=== PATIENT | female | born 2000 | race Caucasian/White ===

== ENCOUNTER 2021-01-16 07:30 | Outpatient (RCR) | payer OTHER, MEDICAID, SELFPAY | END 2021-04-14 23:59 | disposition home or self-care (01) | LOC: ANHLAB 07:30 | PROVIDERS: PCP Family Medicine; Visit Provider Obstetrics & Gynecology Gynecology | DX: O26.21 Pregnancy care for patient with recurrent pregnancy loss, first trimester (principal); Z3A.00 Weeks of gestation of pregnancy not specified | CPT/HCPCS: 36415; 84702 ==

== ENCOUNTER 2021-01-25 08:50 | Outpatient (CLI) | payer OTHER, MEDICAID, SELFPAY ==
--- NOTE | ~2021-01-25 | US_ITS ---
EXAMINATION: US OB <=14 wk fetus w TV DATE: 01/25/2021 09:30 INDICATION: First trimester . History of miscarriage. TECHNIQUE: Real-time transabdominal and transvaginal pelvic ultrasound was performed. COMPARISON: None. FINDINGS: TRANSABDOMINAL ULTRASOUND: The uterus measures 9.4 x 6.9 x 5.2 cm. TRANSVAGINAL ULTRASOUND: There is an intrauterine gestational sac. A yolk sac is identified. The fet al crown rump length measures 3 mm, which correlates with an estimated gestational age of 5 weeks and 6 day(s) (+/-) 4 day(s). heart motion is identified measuring 161 beats per minute (bpm) by M- mode Doppler. The right ovary measures 3.0 x 2.2 x 1.5 cm. The left ovary measures 2.3 x 2.0 x 1.9 cm . There is no free fluid in the pelvis. IMPRESSION: 1. Single living intrauterine gestation with estimated date of delivery of 09/21/2021. Reviewed, dictated and finalized at location A. [employer] IMPRESSION: 1. Single living intrauterine gestation with estimated date of delivery of .
== END 2021-01-25 08:51 | disposition home or self-care (01) ==
PROVIDERS: PCP Family Medicine; Visit Provider Obstetrics & Gynecology Gynecology
DX: Z34.91 Encounter for supervision of normal pregnancy, unspecified, first trimester (principal); Z3A.01 Less than 8 weeks gestation of pregnancy
CPT/HCPCS: 76801; 76817

== ENCOUNTER 2021-03-05 12:03 | Outpatient (CLI) | payer OTHER, MEDICAID, SELFPAY ==
[2021-03-05 12:29] LABS: Basophils Absolute Auto 0.1 K/mm3 (0.0-0.1); Basophils Percent Auto 0.7 % (0.2-1.2); Eosinophils Absolute Auto 0.1 K/mm3 (0-0.3); Eosinophils Percent Auto 0.9 % (0-4.4); Hematocrit 35.8 % (37.0-47.0); Hemoglobin 13.1 g/dL (12.0-15.0); Immature Granulocyte Absolute 0.03 K/mm3 (0.00-0.031); Immature Granulocyte Percent A 0.4 % (0-0.5); Mean Corpuscular HGB Conc 36.6 g/dl (32-36); Mean Corpuscular Hemoglobin 30.9 pg (26-34); Mean Corpuscular Volume 84.4 fl (80-100); Mean Platelet Volume 9.9 fl (7.4-10.4); Monocytes Absolute Auto 0.3 K/mm3 (0.1-0.6); Monocytes Percent Auto 3.9 % (2.6-8.5); Neutrophils Absolute Auto 5.6 K/mm3 (1.3-6.7); Neutrophils Percent Auto 74.1 % (45.5-73.1); Platelet Count Result 288 k/mm3 (150-375); Red Blood Count 4.24 M/mm3 (4.2-5.4); Red Cell Distribution Width 12.3 % (11.5-14.5); White Blood Count 7.5 K/mm3 (4.5-10.0)
[2021-03-05 12:38] LABS: Hemoglobin A1C 4.7 % (<5.7)
[2021-03-05 13:21] LABS: HIV 1/2 Ab P24 Ag Result Negative (Negative)
[2021-03-05 13:24] LABS: Vitamin D 25 Hydroxy 35.7 ng/mL
[2021-03-05 13:45] LABS: Hepatitis B Surface Antigen Negative (Negative); Rubella IgG Antibody 87.6 IU/ML
[2021-03-06 08:39] LABS: Rapid Plasma Reagin Non-Reactive (NonReactive)
== END 2021-03-05 12:04 | disposition home or self-care (01) ==
PROVIDERS: PCP Family Medicine; Visit Provider Obstetrics & Gynecology Gynecology
DX: Z36.9 Encounter for antenatal screening, unspecified (principal); Z3A.00 Weeks of gestation of pregnancy not specified
CPT/HCPCS: 36415; 82306; 83036; 85025; 86592; 86703; 86762; 86850; 86900; 86901; 87340; G0432

== ENCOUNTER 2021-04-28 12:59 | Outpatient (CLI) | payer OTHER, MEDICAID, SELFPAY ==
--- NOTE | ~2021-04-28 | US_ITS ---
EXAMINATION: US OB /maternal detail EXAM DATE: 04/28/2021 13:53 INDICATION: OB anatomy screen. 2nd trimester. TECHNIQUE: Pelvic obstetrical transabdominal sonogram was performed by a technologist. There are mu ltiple grayscale and Doppler images available for interpretation. Comparison is made to prior examina tion from 01/25/2021. FINDINGS: There is a single fetus identified in transverse presentation with a heart rate of 155 beat s per minute. The placenta is located in the posterior position. There is no sonographic evidence of retroplacental hemorrhage identified. AMNIOTIC FLUID INDEX Quadrant 1: 2.4 cm Quadrant 2: 1.5 cm Quadrant 3: 1.3 cm Quadrant 4: 1.6 cm Amniotic fluid index: 6.7 cm. (The 5th -- 95th percentile range is 9.0-20.7). BIOMETRIC DATA: Biparietal diameter (BPD): 4.3 cm ----------------> 19 weeks 0 days. Head circumference (HC): 16.9 cm ----------------> 19 weeks 4 days. Abdominal circumference (AC): 14.3 cm ----------> 19 weeks 4 days. Femur length (FL): 3.1 cm --------------------------> 19 weeks 4 days. These measurements are concordant. HC/AC ratio is 1.19 (The 5th -- 95th percentile range is 1.08-1.26. Estimated weight is 301 g +/- 45 g. This is the 38th percentile when the currently reported cl inical gestation age 19 weeks 5 days, clinical estimated date of delivery (YAQUELIN-OPE) 09/17/2021 is use d. estimated gestational age based on measurements from this exam is 19 weeks 3 days, with an e stimated date of delivery (YAQUELIN-AUA) 09/19/2021. ANATOMIC SURVEY: The following anatomy is identified and is sonographically normal in appearance: Cerebral ventricles Cerebellum Cisterna magna CTL-spine Four-chamber heart Diaphragm Stomach Kidneys Bladder Three-vessel cord Nose, lips. Extremities. Following anatomy not confirmed normal. Nuchal fold measurement 6.1 mm, mildly thickened. Cavum septum pellucidum not confirmed on these images. Cord insertion suboptimally visualized. IMPRESSION: 1. Single fetus in transverse presentation with heart rate 155 beats per minute. 2. Estimated weight of 301 grams, 38th percentile using the currently reported clinical gestat ion age of 19 weeks 5 days, YAQUELIN(OPE) 09/17. 3. Oligohydramnios, DESTINEE 6.7 cm. 4. Mildly thickened nuchal fold at 6.1 mm. Suboptimal visualization cord insertion. Cavum septum pel lucidum not confirmed on these images. Consider level 2 obstetrical ultrasound. Reviewed, dictated and finalized at location B. IMPRESSION: 1. Single fetus in transverse presentation with heart rate 155 beats per minut e. 2. Estimated weight of 301 grams, 38th percentile using the currently re ported clinical gestation age of 19 weeks 5 days, YAQUELIN(OPE) 09/17. 3. Oligohydramnios, DESTINEE 6.7 cm. 4. Mildly thickened nuchal fold at 6.1 mm. Suboptimal visualization cord inser tion. Cavum septum pellucidum not confirmed on these images. Consider level 2 o bstetrical ultrasound.
== END 2021-04-28 13:00 | disposition home or self-care (01) ==
PROVIDERS: PCP Family Medicine; Visit Provider Nurse Practitioner
DX: O41.01X0 Oligohydramnios, first trimester, not applicable or unspecified (principal); Z3A.19 19 weeks gestation of pregnancy
CPT/HCPCS: 76805